=== PATIENT | female | born 1985 | race American Indian/Alaskan Native ===

== ENCOUNTER 2016-11-04 16:40 | Emergency (ER) | payer MEDICAID ==
[2016-11-04 17:11] VITALS: BP 127/85
--- NOTE | 2016-11-04 17:28 | EDM.PDOC ---
ED HPI GENERAL MEDICAL PROBLEM - General Chief Complaint: Back Pain or Injury Stated Complaint: BACK PAIN. [phone] Time Seen by Provider: 11/04/16 17:21 Source of Information: Reports: Patient History Limitations: Reports: No Limitations - History of Present Illness INITIAL COMMENTS - FREE TEXT/NARRATIVE: Radha is a 31 year old female who presents to the ER with complaints of mid back pain. She reports that she had a compression fracture back in June of this year. She reports that the pain has been getting worse since then. She states that she initially injured her back after falling and landing on bricks. The pain today is localized to this area in her mid back. Denies any numbness or tingling in extremities. Denies any loss of bowel or bladder. Denies any fever or chills. Reports she has been using "Aleve and ibuprofen" for pain, which provides little relief. She last took ibuprofen at 2100 last evening and Aleve at 0900 this morning, though she reports being allergic to it. She reports she gets a rash from ibuprofen. Patient states pain is worse with movement and lifting. She reports she has a difficult time lifting her 1 and 2 year old children. Patient states she recently moved here from [place] and has not yet established a primary care provider. Reports chance of , so will get urine test prior to xray. Duration: Getting Worse Location: Reports: Back Severity: Moderate Improves with: Reports: Medication Worsens with: Reports: Movement Context: Reports: Activity, Lifting Associated Symptoms: Reports: No Other Symptoms Treatments [employer]: Reports: NSAIDS Middle Back Pain Score (Numeric/FACES): 8 - Related Data Allergies Allergy/AdvReac Type Severity Reaction Status Date / Time ibuprofen Allergy Rash Verified 11/04/16 17:11 Home Meds: Home Meds Naproxen Sodium [Aleve] 220 mg PO ASDIRECTED PRN 11/16/14 [History] Past Medical History HEENT History: Reports: Other (See Below) Other HEENT History: lost tooth filling - Infectious Disease History Infectious Disease History: Reports: None - Past Surgical History Female Surgical History: Reports: Section Social & Family History - Tobacco Use Smoking Status *Q: Current Every Day Smoker Years of Tobacco use: 13 Packs/Tins Daily: 0.2 Used Tobacco, but Quit: No Second Hand Smoke Exposure: Yes - Caffeine Use Caffeine Use: Reports: Soda, Tea - Recreational Drug Use Recreational Drug Use: No Drug Use in Last 12 Months: Yes Recreational Drug Type: Reports: Marijuana/Hashish ED ROS GENERAL - Review of Systems Review Of Systems: ROS reveals no pertinent complaints other than HPI. ED EXAM,LOWER BACK PAIN/INJURY - Physical Exam Exam: See Below Exam Limited By: No Limitations General Appearance: Alert, WD/WN, No Apparent Distress Neck: Normal Inspection, Supple, Non-Tender, Full Range of Motion Respiratory/Chest: No Respiratory Distress, Lungs Clear, Normal Breath Sounds, No Accessory Muscle Use, Chest Non-Tender Cardiovascular: Normal Peripheral Pulses, Regular Rate, Rhythm, No Edema, No Gallop, No JVD, No Murmur, No Rub Back Exam: Normal Inspection, Decreased Range of Motion, Vertebral Tenderness ( thoracic ) Neurological: Alert, Normal Mood/Affect, Normal Dorsiflexion, CN II-XII Intact, Normal Plantar Flexion, Normal Gait, Normal Reflexes, No Motor/Sensory Deficits , Oriented x 3 Course - Vital Signs Last Recorded V/S: Last Vital Signs Temp 36.4 C 11/04/16 17:10 Pulse 102 H 11/04/16 17:10 Resp 16 11/04/16 17:10 BP 127/85 11/04/16 17:10 Pulse Ox 100 11/04/16 17:10 - Orders/Labs/Meds Labs: Laboratory Tests 11/04/16 11/04/16 Range/Units 17:22 17:22 Urine HCG, Qual Positive Urine Opiates Screen Negative (NEGATIVE) Ur Oxycodone Screen Negative (NEGATIVE) Urine Methadone Screen Negative (NEGATIVE) Ur Barbiturates Screen Negative (NEGATIVE) U Tricyclic Antidepress Negative (NEGATIVE) Ur Phencyclidine Scrn Negative (NEGATIVE) Ur Amphetamine Screen Negative (NEGATIVE) U Methamphetamines Scrn Negative (NEGATIVE) Urine MDMA Screen Negative (NEGATIVE) U Benzodiazepines Scrn Negative (NEGATIVE) Urine Cocaine Screen Negative (NEGATIVE) U Marijuana (THC) Screen Positive H (NEGATIVE) Departure - Departure Time of Disposition: 17:51 Disposition: Home, Self-Care 01 Condition: Good Clinical Impression: Back pain Qualifiers: Back pain location: thoracic back pain Chronicity: chronic Back pain laterality : midline Qualified Code(s): M54.6 - Pain in thoracic spine Qualifiers: Weeks of gestation: less than 8 weeks Qualified Code(s): Z3A.01 - Less than 8 weeks gestation of - Discharge Information Instructions: Back Injury Prevention, [id number], Back Pain, Adult, Easy-to- Read, First Trimester of Forms: ED Department Discharge Care Plan Goals: Discussed urine and drug screen results with patient. Unable to prescribe narcotic pain medications or perform back xray. Recommend patient stop taking all NSAIDS (ibuprofen/Aleve) and stop using illicit drugs. Recommend patient follow up with primary care provider for OB care.
== END 2016-11-04 18:03 | disposition home or self-care (01) ==
LOC: DL.ED 16:40
DX: O99.89 Other specified diseases and conditions complicating pregnancy, childbirth and the puerperium (principal); M54.6 Pain in thoracic spine; G89.29 Other chronic pain; O99.331 Smoking (tobacco) complicating pregnancy, first trimester; F17.210 Nicotine dependence, cigarettes, uncomplicated; Z3A.01 Less than 8 weeks gestation of pregnancy; Z88.6 Allergy status to analgesic agent
CPT/HCPCS: 80305; 81025; 99283